=== PATIENT | female | born 1980 | race Caucasian/White ===

== ENCOUNTER 2016-07-28 08:36 | Emergency (ER) | payer MEDICAID, OTHER ==
[~2016-07-28] VITALS: Ht 157.5 cm; Wt 55.0 kg
[~2016-07-28 08:36] MED LIST: FERR1TAB45 PO; NOCURR; PNV#1COM7 PO; PREN1TAB80 PO
[2016-07-28] MEDS ORDERED: MECLIZINE HCL 25 MG TABLET PO ONE (10:45)
[2016-07-28 12:25] VITALS: BP 110/68
== END 2016-07-28 12:26 | disposition home or self-care (01) ==
LOC: EMS 08:42
DX: R51 Headache (principal); R42 Dizziness and giddiness
CPT/HCPCS: 70450; 81025; 99284